=== PATIENT | female | born 1985 | race African-American/Black ===

== ENCOUNTER 2016-10-04 19:24 | Emergency (ER) | payer OTHER ==
[~2016-10-04] VITALS: Ht 167.6 cm; Wt 96.6 kg
[~2016-10-04 19:24] MED LIST: HYDR-3533 PO; PROT40TA PO
[2016-10-04 19:28] VITALS: BP 130/80; PULSE 85; RESP 16; TEMP 98.6; O2SAT 99
[2016-10-04 20:00] VITALS: BP 135/70; PULSE 83; RESP 18; O2SAT 98
[2016-10-04] MEDS ORDERED: SODIUM CHLOR 0.9% 1000 ML INJ 1,000 ML IV ONE (20:09)
--- NOTE | 2016-10-04 20:14 | PD ---
HPI Chief Complaint: Abdominal Pain Time Seen by Provider: 19:34 Travel History International Travel<30 days: No Contact w/Intl Traveler<30days: No Traveled to known affect area: No History of Present Illness HPI This 30-year-old female is complaining of abdominal pain. She says the pain is been going on for 2 days. Her last menstrual period was on the . She has not had any vaginal bleeding. She has no history of hypertension or diabetes. She has had ovarian cysts in the past. She's been having some loose stools. She has not vomited. She says the pain is worse today than it was yesterday. It has been fairly constant. She is not aware of fever. She is not aware of vaginal discharge PFSH Past Medical History Asthma: No Blood Disorders: No Cancer: No Cardiovascular Problems: No Chest Pain: Yes COPD: No Diminished Hearing: No Endocrine: No Gastrointestinal Disorders: Yes (GERD ) Genitourinary: No Headaches: Yes (cluster headaches) Immune Disorder: No Musculoskeletal: No Neurologic: No Psychiatric: No Reproductive: No Respiratory: Yes (bronchitis) Immunizations Current: No Sleep Apnea: No Tetanus Vaccination: > 5 Years Influenza Vaccination: No ?: Unknown LMP: September 11, 2016 : 3 Para: 1 Miscarriage: 2 Ovarian Cysts: Yes Dilation and Curettage (D&C): Yes Past Surgical History Other Surgery: Yes (OVARIAN BIOPSY) Social History Alcohol Use: Yes (Socially) Tobacco Use: No Substance Use: No Allergies-Medications (Allergen,Severity, Reaction): Coded Allergies: Codeine (Verified Allergy, Severe, convulsions, 10/04/16) Morphine (Verified Allergy, Unknown, 10/04/16) Compazine (Verified Adverse Reaction, Severe, Irritability/Anxiety, ) Reported Meds & Prescriptions Reported Meds & Active Scripts Active Review of Systems General / Constitutional: No: Fever, Chills Eyes: No: Diploplia, Blurred Vision HENT: No: Headaches, Vertigo Cardiovascular: No: Chest Pain or Discomfort, Palpitations Respiratory: No: Cough, Shortness of Breath Gastrointestinal: Positive: Diarrhea, Abdominal Pain, No: Vomiting Genitourinary: No: Frequency Musculoskeletal: No: Myalgias, Arthralgias Skin: No Rash Neurologic: No: Weakness Physical Exam Narrative GENERAL: Well-developed female SKIN: Focused skin assessment warm/dry. HEAD: Atraumatic. Normocephalic. EYES: Pupils equal and round. No scleral icterus. No injection or drainage. ENT: No nasal bleeding or discharge. Mucous membranes pink and moist. NECK: Trachea midline. No JVD. CARDIOVASCULAR: Regular rate and rhythm. No murmur appreciated. RESPIRATORY: No accessory muscle use. Clear to auscultation. Breath sounds equal bilaterally. GASTROINTESTINAL: Abdomen soft, non-tender, nondistended. Hepatic and splenic margins not palpable. CANVAS SHRINKER: Cervical os is closed. Uterus not palpably enlarged. There is some whitish vaginal discharge. There is pain with movement of the cervix MUSCULOSKELETAL: No obvious deformities. No clubbing. No cyanosis. No edema. NEUROLOGICAL: Awake and alert. No obvious cranial nerve deficits. Motor grossly within normal limits. Normal speech. PSYCHIATRIC: Appropriate mood and affect; insight and judgment normal. Data Data Last Documented VS Vital Signs Date Time Temp Pulse Resp B/P Pulse Ox O2 Delivery O2 Flow Rate FiO2 10/04/16 23:00 68 18 119/71 99 Room Air 10/04/16 19:28 98.6 Orders Complete Blood Count With Diff (10/04/16 20:09) Comprehensive Metabolic Panel (10/04/16 20:09) Gc And Chlamydia Pcr (10/04/16 20:09) Wet Prep Profile (10/04/16 20:09) Urinalysis - C+S If Indicated (10/04/16 20:09) Ceftriaxone Inj (Rocephin Inj) (10/04/16 20:15) Sodium Chlor 0.9% 1000 Ml Inj (Ns 1000 M (10/04/16 20:09) Ed Urine Pregnancytest Poc (10/04/16 20:09) Ct Abd/Pel W Iv Contrast(Rout) (10/04/16 20:09) Ketorolac Inj (Toradol Inj) (10/04/16 20:45) Iohexol 350 Inj (Omnipaque 350 Inj) (10/04/16 22:08) Labs Laboratory Tests Test 10/04/16 10/04/16 10/04/16 20:05 20:10 20:15 Urine Color YELLOW Urine Turbidity CLEAR Urine pH 7.0 Urine Specific [place] 1.015 Urine Protein NEG mg/dL Urine Glucose (UA) NEG mg/dL Urine Ketones NEG mg/dL Urine Occult Blood NEG Urine Nitrite NEG Urine Bilirubin NEG Urine Leukocyte Esterase NEG Urine WBC 0-2 /hpf Urine Squamous Epithelial 0-5 /hpf Cells Microscopic Urinalysis Comment CULT NOT INDICATED Clue Cells (Wet Prep) NONE SEEN Vaginal Trichomonas (Wet Prep) NONE SEEN Vaginal Yeast (Wet Prep) NONE SEEN White Blood Count 9.1 TH/MM3 Red Blood Count 4.23 MIL/MM3 Hemoglobin 12.6 GM/DL Hematocrit 36.8 % Mean Corpuscular Volume 87.0 FL Mean Corpuscular Hemoglobin 29.9 PG Mean Corpuscular Hemoglobin 34.4 % Concent Red Cell Distribution Width 12.5 % Platelet Count 249 TH/MM3 Mean Platelet Volume 8.0 FL Neutrophils (%) (Auto) 68.0 % Lymphocytes (%) (Auto) 25.1 % Monocytes (%) (Auto) 5.5 % Eosinophils (%) (Auto) 1.1 % Basophils (%) (Auto) 0.3 % Neutrophils # (Auto) 6.2 TH/MM3 Lymphocytes # (Auto) 2.3 TH/MM3 Monocytes # (Auto) 0.5 TH/MM3 Eosinophils # (Auto) 0.1 TH/MM3 Basophils # (Auto) 0.0 TH/MM3 CBC Comment DIFF FINAL Differential Comment Sodium Level 139 MEQ/L Potassium Level 3.6 MEQ/L Chloride Level 104 MEQ/L Carbon Dioxide Level 28.5 MEQ/L Anion Gap 7 MEQ/L Blood Urea Nitrogen 11 MG/DL Creatinine 0.81 MG/DL Estimat Glomerular Filtration 100 ML/MIN Rate Random Glucose 94 MG/DL Calcium Level 9.0 MG/DL Total Bilirubin 0.3 MG/DL Aspartate Amino Transf 12 U/L (AST/SGOT) Alanine Aminotransferase 24 U/L (ALT/SGPT) Alkaline Phosphatase 57 U/L Total Protein 7.8 GM/DL Albumin 3.8 GM/DL [facility] Medical Decision Making Medical Screen Exam Complete: Yes Emergency Medical Condition: Yes Medical Record Reviewed: Yes Differential Diagnosis Differential includes appendicitis, ovarian cyst, nonspecific abdominal pain Narrative Course CT scan shows ovarian cysts and is negative for appendicitis. Patient is stable for discharge. A medic cover her with antibiotics pending results of serology Diagnosis Primary Impression: Ovarian cyst Scripts Hydrocodone-Acetaminophen (Lortab)5-325 Mg Tab1 Tab PO Q4H PRN (PAIN) #20 TAB Ref 0 Prov:Maximo Ball MD 10/04/16 Doxycycline Hyclate 100 Mg [id number] Mg PO BID #20 CAP Prov:Maximo Ball MD 10/04/16 Disposition: 01 DISCHARGE HOME Condition: Stable Maximo Ball MD October 04, 2016 20:13
[2016-10-04] MEDS ORDERED: cefTRIAXone INJ 1,000 MG in SODIUM CHLORIDE 0.9% INJ 100 ML IV ONE (20:15)
[2016-10-04 20:37] LABS: BLOOD, URINE NEG (NEG); GLUCOSE,URINE NEG (NEG); KETONE, URINE NEG (NEG); NITRITE,URINE NEG (NEG)
[2016-10-04 20:40] LABS: CHLORIDE 104 MEQ/L (98-107); POTASSIUM 3.6 MEQ/L (3.5-5.1); SODIUM (NA) 139 MEQ/L (136-145)
[2016-10-04 20:44] LABS: ANION GAP 7 MEQ/L (5-15); BICARBONATE 28.5 MEQ/L (21.0-32.0); BLOOD UREA NITROGEN 11 MG/DL (7-18)
[2016-10-04] MEDS ORDERED: KETOROLAC TROMETHAMINE 30 MG/ML (IVP) VIAL IV PUSH ONE (20:45)
[2016-10-04 20:47] LABS: ALT (GPT) 24 U/L (10-53); AST (GOT) 12 U/L (15-37); GLOMERULAR FILTRATION RATE 100 ML/MIN (>89)
[2016-10-04 20:48] LABS: URINE COLOR YELLOW (YELLW/STRAW)
[2016-10-04 20:49] LABS: TOTAL BILIRUBIN ADULT 0.3 MG/DL (0.2-1.0)
[2016-10-04 20:50] LABS: ALKALINE PHOSPHATASE 57 U/L (45-117)
[2016-10-04 20:50] LABS: COMMENT (UR) CULT NOT INDICATED; CULTURE IF INDICATED CULT NOT INDICATED; SQUAMOUS EPITHELIAL CELL URINE 0-5 /hpf (0-5); WBC, URINE 0-2 /hpf (0-5)
[2016-10-04 21:00] VITALS: BP 129/81; PULSE 80; RESP 18; O2SAT 100
[2016-10-04 21:25] LABS: AUTOMATED NEUTROPHIL # 6.2 TH/MM3 (1.8-7.7); BASOPHIL % 0.3 % (0.0-2.0); EOSINOPHIL # 0.1 TH/MM3 (0-0.4); EOSINOPHIL % 1.1 % (0.0-4.0); HEMATOCRIT 36.8 % (35.0-46.0); HEMO FLAGS DIFF FINAL; LYMPH % 25.1 % (9.0-44.0); LYMPHOCYTE # 2.3 TH/MM3 (1.0-4.8); MEAN CORPUSCULAR HEMOGLOBIN 29.9 PG (27.0-34.0); MEAN CORPUSCULAR HGB CONC 34.4 % (32.0-36.0); MONO % 5.5 % (0.0-8.0); PLATELET COUNT 249 TH/MM3 (150-450); RED BLOOD COUNT 4.23 MIL/MM3 (4.00-5.30); RED CELL DISTRIBUTION WIDTH 12.5 % (11.6-17.2); WHITE BLOOD COUNT 9.1 TH/MM3 (4.0-11.0)
[2016-10-04 22:00] VITALS: BP 120/60; PULSE 82; RESP 18; O2SAT 99
[2016-10-04] MEDS ORDERED: IOHEXOL 350 MG/ML 10 ML VIAL (for RAD DIAG) IV ONE (22:08)
--- NOTE | 2016-10-04 22:22 | RADHPO ---
EXAM DATE/TIME: 10/04/2016 21:07 [facility] COMPARISON: No previous studies available for comparison. INDICATIONS : Right lower quadrant pain. Diarrhea. IV CONTRAST: 100 cc Omnipaque 350 (iohexol) IV ORAL CONTRAST: No oral contrast ingested. RADIATION DOSE: 18.31 CTDIvol (mGy) MEDICAL HISTORY : None SURGICAL HISTORY : None. ENCOUNTER: Initial ACUITY: 2 days PAIN SCALE: 8/10 LOCATION: Right lower quadrant TECHNIQUE: Volumetric scanning of the abdomen and pelvis was performed. Using automated exposure control and ad justment of the mA and/or kV according to patient size, radiation dose was kept as low as reasonably achievable to obtain optimal diagnostic quality images. FINDINGS: Lung bases clear. Tiny cyst anterior liver stable since 2016. Adrenals, kidneys and pancreas unremark able. No gallstones identified. The appendix is normal. Trace free fluid. No bowel obstruction. No adenopathy. Multiple small cysts i n the right ovary including a suspected 1.7 cm corpus luteum cyst. CONCLUSION: 1. Normal CT appearance of appendix. Small cysts in the right ovary including a suspected 1.7 cm erika us luteum cyst. Trace free fluid. Tiny hepatic cysts. Small hiatal hernia. Brayden Narvaez MD on October 04, 2016 at 22:15 Board Certified Radiologist. This report was verified electronically.
[2016-10-04 23:00] VITALS: BP 119/71; PULSE 68; RESP 18; O2SAT 99
[2016-10-04] MEDS ORDERED: HYDR-3533 PO (23:54)
[2016-10-04] MEDS ORDERED: DOXY100C PO (23:54)
[2016-10-05 00:14] VITALS: BP 109/67; TEMP 98.7
[2016-10-05 03:56] LABS: CHLAMYDIA PCR NOT DETECTED (NOT DETECT); NEISSERIA PCR NOT DETECTED (NOT DETECT)
== END 2016-10-05 00:18 | disposition home or self-care (01) ==
LOC: PHED 19:24
DX: N83.201 Unspecified ovarian cyst, right side (principal); K76.89 Other specified diseases of liver; K44.9 Diaphragmatic hernia without obstruction or gangrene; R19.7 Diarrhea, unspecified; K21.9 Gastro-esophageal reflux disease without esophagitis
CPT/HCPCS: 74177; 80053; 81001; 84703; 85025; 87210; 87491; 87591; 96365; 96375; 99284; J0696; J1885; J7030; Q9967

== ENCOUNTER 2017-02-01 20:33 | Emergency (ER) | payer OTHER ==
[~2017-02-01 20:33] MED LIST changes: +DOXY100C PO; -PROT40TA PO
--- NOTE | 2017-02-01 20:48 | PD ---
HPI Chief Complaint: Chest Pain Time Seen by Provider: 20:45 Travel History International Travel<30 days: No Contact w/Intl Traveler<30days: No Traveled to known affect area: No History of Present Illness HPI This 31-year-old female has been having lower abdominal pain for 2 days. She's had some nausea. Today she had some sharp left-sided chest pain. She is not short of breath. There is been no fever or chills. PFSH Past Medical History Asthma: No Blood Disorders: No Cancer: No Cardiovascular Problems: No Chest Pain: Yes COPD: No Diminished Hearing: No Endocrine: No Gastrointestinal Disorders: Yes (GERD ) Genitourinary: No Headaches: Yes (cluster headaches) Immune Disorder: No Musculoskeletal: No Neurologic: No Psychiatric: No Reproductive: No Respiratory: Yes (bronchitis) Immunizations Current: No Sleep Apnea: No : 3 Para: 1 Miscarriage: 2 Ovarian Cysts: Yes Dilation and Curettage (D&C): Yes Past Surgical History Other Surgery: Yes (OVARIAN BIOPSY) Social History Alcohol Use: Yes (Socially) Tobacco Use: No Substance Use: No Allergies-Medications (Allergen,Severity, Reaction): Coded Allergies: codeine (Unverified Allergy, Severe, convulsions, 02/01/17) morphine (Unverified Allergy, Unknown, UNKNOWN, 02/01/17) UNKNOWN prochlorperazine (Unverified Adverse Reaction, Severe, Irritability/ Anxiety, 02/01/17) Reported Meds & Prescriptions Reported Meds & Active Scripts Active Clindamycin (Clindamycin HCl) 300 Mg Cap 300 Mg PO BID 7 Days Reported Vitamin D-1000 (Cholecalciferol) 1,000 Unit Tab 1,000 Units PO DAILY Review of Systems General / Constitutional: No: Fever, Chills Eyes: No: Diploplia, Blurred Vision HENT: No: Headaches, Vertigo Cardiovascular: Positive: Chest Pain or Discomfort Respiratory: No: Cough, Shortness of Breath Gastrointestinal: No: Nausea, Vomiting Genitourinary: Positive: Pelvic Pain, No: Urgency, Frequency Musculoskeletal: No: Myalgias, Arthralgias Skin: No Rash Endocrine: No: Heat Intolerance Physical Exam Narrative GENERAL: Well-developed female SKIN: Focused skin assessment warm/dry. HEAD: Atraumatic. Normocephalic. EYES: Pupils equal and round. No scleral icterus. No injection or drainage. ENT: No nasal bleeding or discharge. Mucous membranes pink and moist. NECK: Trachea midline. No JVD. CARDIOVASCULAR: Regular rate and rhythm. No murmur appreciated. RESPIRATORY: No accessory muscle use. Clear to auscultation. Breath sounds equal bilaterally. There is some left-sided costochondral tenderness GASTROINTESTINAL: Abdomen soft, there is some lower abdominal tenderness, nondistended. Hepatic and splenic margins not palpable. DEMAND PLANNING ANALYST: There is some moderate amount of whitish thin discharge. There is no pain with movement of the cervix. No masses are felt MUSCULOSKELETAL: No obvious deformities. No clubbing. No cyanosis. No edema. NEUROLOGICAL: Awake and alert. No obvious cranial nerve deficits. Motor grossly within normal limits. Normal speech. PSYCHIATRIC: Appropriate mood and affect; insight and judgment normal. Data Data Last Documented VS Vital Signs Date Time Temp Pulse Resp B/P (MAP) Pulse Ox O2 Delivery O2 Flow Rate FiO2 02/01/17 22:33 98.5 75 18 120/60 (80) 99 Room Air Orders Orders Electrocardiogram (02/01/17 20:35) Complete Blood Count With Diff (02/01/17 20:35) Basic Metabolic Panel (Bmp) (02/01/17 20:35) Troponin I (02/01/17 20:35) Iv Access Insert/Monitor (02/01/17 20:35) Ecg Monitoring (02/01/17 20:35) Oxygen Administration (02/01/17 20:35) Oximetry (02/01/17 20:35) Gc And Chlamydia Pcr (02/01/17 20:46) Wet Prep Profile (02/01/17 20:46) Ed Urine Pregnancytest Poc (02/01/17 20:46) Urinalysis - C+S If Indicated (02/01/17 21:14) Beta Hcg (Quant/Titer) (02/01/17 20:51) Us Pelvis (Ques Pr/Ect)W Trans (02/01/17 21:54) Labs Laboratory Tests Test 02/01/17 20:51 02/01/17 21:15 02/01/17 22:13 White Blood Count 10.8 TH/MM3 Red Blood Count 3.98 MIL/MM3 Hemoglobin 12.0 GM/DL Hematocrit 34.1 % Mean Corpuscular Volume 85.6 FL Mean Corpuscular Hemoglobin 30.1 PG Mean Corpuscular Hemoglobin Concent 35.2 % Red Cell Distribution Width 13.2 % Platelet Count 233 TH/MM3 Mean Platelet Volume 7.5 FL Neutrophils (%) (Auto) 71.8 % Lymphocytes (%) (Auto) 21.0 % Monocytes (%) (Auto) 6.0 % Eosinophils (%) (Auto) 0.8 % Basophils (%) (Auto) 0.4 % Neutrophils # (Auto) 7.8 TH/MM3 Lymphocytes # (Auto) 2.3 TH/MM3 Monocytes # (Auto) 0.6 TH/MM3 Eosinophils # (Auto) 0.1 TH/MM3 Basophils # (Auto) 0.0 TH/MM3 CBC Comment DIFF FINAL Differential Comment Blood Urea Nitrogen 8 MG/DL Creatinine 0.78 MG/DL Random Glucose 81 MG/DL Calcium Level 8.5 MG/DL Sodium Level 137 MEQ/L Potassium Level 3.4 MEQ/L Chloride Level 104 MEQ/L Carbon Dioxide Level 26.1 MEQ/L Anion Gap 7 MEQ/L Estimat Glomerular Filtration Rate 104 ML/MIN Troponin I LESS THAN 0.02 NG/ML Human Chorionic Gonadotropin, Quant 30146 MIU/ML Urine Color YELLOW Urine Turbidity CLEAR Urine pH 7.0 Urine Specific [place] 1.015 Urine Protein NEG mg/dL Urine Glucose (UA) NEG mg/dL Urine Ketones NEG mg/dL Urine Occult Blood NEG Urine Nitrite NEG Urine Bilirubin NEG Urine Leukocyte Esterase NEG Urine RBC 0-3 /hpf Urine WBC 0-2 /hpf Urine Squamous Epithelial Cells 0-5 /hpf Urine Bacteria FEW /hpf Microscopic Urinalysis Comment CULT NOT INDICATED Clue Cells (Wet Prep) PRESENT Vaginal Trichomonas (Wet Prep) NONE SEEN Vaginal Yeast (Wet Prep) NONE SEEN MDM Medical Decision Making Medical Screen Exam Complete: Yes Emergency Medical Condition: Yes Medical Record Reviewed: Yes Differential Diagnosis Differential includes , vaginitis, cervicitis Narrative Course Wet prep is positive for bacterial vaginosis. She'll be treated with clindamycin 300 twice a day for 7 days. test is positive and a titer is 19,000. Pelvic ultrasound is done. There is a viable intrauterine estimated to be 5-6 weeks old. There is an area thought to be an old subchorionic hemorrhage. Probable corpus luteum on the right. Patient is stable for discharge Diagnosis Primary Impression: Intrauterine Additional Impression: Bacterial vaginosis Scripts Clindamycin (Clindamycin) 300 Mg Cap 300 MG PO BID for Infection for 7 Days, #14 CAP 0 Refills Prov: Maximo Ball MD 02/01/17 Disposition: 01 DISCHARGE HOME Condition: Stable Maximo Ball MD Feb 01, 2017 20:48
[2017-02-01 20:59] VITALS: BP 119/71; PULSE 78; RESP 18; O2SAT 98
[2017-02-01] MEDS ORDERED: VITA1000 PO (20:59)
[2017-02-01 21:02] VITALS: O2SAT 99
[2017-02-01 21:08] LABS: CHLORIDE 104 MEQ/L (98-107); POTASSIUM 3.4 MEQ/L (3.5-5.1); SODIUM (NA) 137 MEQ/L (136-145)
[2017-02-01 21:11] LABS: ANION GAP 7 MEQ/L (5-15); AUTOMATED NEUTROPHIL # 7.8 TH/MM3 (1.8-7.7); BASOPHIL % 0.4 % (0.0-2.0); BICARBONATE 26.1 MEQ/L (21.0-32.0); BLOOD UREA NITROGEN 8 MG/DL (7-18); EOSINOPHIL # 0.1 TH/MM3 (0-0.4); EOSINOPHIL % 0.8 % (0.0-4.0); HEMATOCRIT 34.1 % (35.0-46.0); HEMO FLAGS DIFF FINAL; LYMPHOCYTE # 2.3 TH/MM3 (1.0-4.8); MEAN CELL VOLUME 85.6 FL (80.0-100.0); MEAN CORPUSCULAR HEMOGLOBIN 30.1 PG (27.0-34.0); MEAN CORPUSCULAR HGB CONC 35.2 % (32.0-36.0); NEUT % 71.8 % (16.0-70.0); PLATELET COUNT 233 TH/MM3 (150-450); RED BLOOD COUNT 3.98 MIL/MM3 (4.00-5.30); RED CELL DISTRIBUTION WIDTH 13.2 % (11.6-17.2); WHITE BLOOD COUNT 10.8 TH/MM3 (4.0-11.0)
[2017-02-01 21:15] LABS: GLOMERULAR FILTRATION RATE 104 ML/MIN (>89)
[2017-02-01 21:25] LABS: BLOOD, URINE NEG (NEG); GLUCOSE,URINE NEG (NEG); KETONE, URINE NEG (NEG); NITRITE,URINE NEG (NEG)
[2017-02-01 21:30] LABS: BACTERIA, URINE FEW /hpf; COMMENT (UR) CULT NOT INDICATED; CULTURE IF INDICATED CULT NOT INDICATED; RBC, URINE 0-3 /hpf (0-3); SQUAMOUS EPITHELIAL CELL URINE 0-5 /hpf (0-5); URINE COLOR YELLOW (YELLW/STRAW); WBC, URINE 0-2 /hpf (0-5)
[2017-02-01 21:46] LABS: BETA HCG QUANT 18299 MIU/ML (0-5)
[2017-02-01 22:33] VITALS: BP 120/60; PULSE 75; RESP 18; TEMP 98.5; O2SAT 99
[2017-02-01] MEDS ORDERED: CLIN1CAP6 PO (22:43)
--- NOTE | 2017-02-01 23:29 | RADRPT ---
EXAM DATE/TIME: 02/01/2017 22:51 [facility] COMPARISON: No previous studies available for comparison. INDICATIONS : Pelvic pain. LAB(S): Beta-hC MEDICAL HISTORY : . Ovarian cysts. SURGICAL HISTORY : D&C. ENCOUNTER: Initial ACUITY: 3 days PAIN SCORE: 3/10 LOCATION: Bilateral pelvis MEASUREMENTS: UTERUS: 10.4 x 5.7 x 5.6 cm ENDOMETRIAL STRIPE: >20 mm RIGHT OVARY: 4.3 x 2.6 x 4.1 cm LEFT OVARY: 2.4 x 1.8 x 1.5 cm FREE FLUID: Yes right adnexa CROWN RUMP LENGTH: 0.2 cm = WKS DAYS FHR: 104 BPM FINDINGS: UTERUS: The myometrium has homogeneous echotexture without mass. Gestational sac is identified in the fundus measuring 2.0 x 1.7 x 1.2 cm corresponding to a gestational age of 6 weeks. No sac is present and a pole was identified with a crown-rump length of 2 mm. heart motions are identified at 102 beats per minute. A complex, 1.8 x 0.9 x 2.3 cm area subjacent to the gestational sac may represent an old subchorionic hemorrhage. RIGHT OVARY: 2.2 x 1.7 x 2.1 cm cyst may represent a corpus luteum. Small amount of free fluid in the right adnexa . Small amount of free fluid in the right adnexal region. LEFT OVARY: Ovary contains no mass or significant cystic lesion. MISCELLANEOUS: No free fluid. CONCLUSION: 1. Viable intrauterine estimated to be 5-6 weeks old. 2. Complex crescentic area adjacent to the gestational sac may represent an old subchorionic bleed. 3. Probable corpus luteum in the right ovary. Small amount of free fluid in the right adnexal region. Blaine Cui MD on February 01, 2017 at 23:23 Board Certified Radiologist. This report was verified electronically.
[2017-02-01 23:38] VITALS: BP 130/66
[2017-02-02 01:41] LABS: CHLAMYDIA PCR NOT DETECTED (NOT DETECT); NEISSERIA PCR NOT DETECTED (NOT DETECT)
--- NOTE | 2017-02-02 17:53 | EKG ---
Date Performed: 02/01/2017 Time Performed: 20:41:58 PTAGE: 31 years EKG: Sinus rhythm NORMAL ECG Compared to prior tracing no significant change PREVIOUS TRACING : 04/22/2016 21.36 DOCTOR: Amadeo Cr Interpretating Date/Time 02/02/2017 17:51:46
== END 2017-02-01 23:38 | disposition home or self-care (01) ==
LOC: PHED 20:33
DX: O23.591 Infection of other part of genital tract in pregnancy, first trimester (principal); N76.0 Acute vaginitis; R07.89 Other chest pain; Z87.19 Personal history of other diseases of the digestive system; Z87.42 Personal history of other diseases of the female genital tract; Z3A.01 Less than 8 weeks gestation of pregnancy
CPT/HCPCS: 76700; 76817; 80048; 81001; 84484; 84702; 84703; 85025; 87210; 87491; 87591; 93005

== ENCOUNTER 2017-02-15 12:06 | Emergency (ER) | payer OTHER ==
[~2017-02-15] VITALS: Ht 167.6 cm; Wt 100.0 kg
[~2017-02-15 12:06] MED LIST changes: +CLIN1CAP6 PO; -DOXY100C PO; -HYDR-3533 PO; +VITA1000 PO
[2017-02-15 12:09] VITALS: BP 131/86; PULSE 83; RESP 16; TEMP 99.1; O2SAT 99
--- NOTE | 2017-02-15 12:12 | PD ---
Physical Exam Time Seen by Provider: 12:11 Narrative 31 /o female here for evaluation of spotting, abdominal pain, lightheadedness. Currently 9 weeks . Vital signs reviewed. Seen at triage desk. Awaiting bed placement. Data Data Last Documented VS Vital Signs Date Time Temp Pulse Resp B/P (MAP) Pulse Ox O2 Delivery O2 Flow Rate FiO2 02/15/17 12:09 99.1 83 16 131/86 (101) 99 Room Air [facility] Medical Record Reviewed: Yes Supervised Visit with ANDREW: No Sergio Nash Feb 15, 2017 12:12
[2017-02-15] MEDS ORDERED: SODIUM CHLORIDE 0.9% FLUSH 10 ML FLUSH IVF PRN (13:00)
--- NOTE | 2017-02-15 13:19 | PD ---
HPI Chief Complaint: Related Problem Time Seen by Provider: 12:42 Travel History International Travel<30 days: No Contact w/Intl Traveler<30days: No Traveled to known affect area: No History of Present Illness HPI 31-year-old female presents to the emergency Department with complaint of continued lower abdominal pain, continued right upper quadrant abdominal pain 2 weeks and vaginal bleeding that started yesterday. It is approximately 8-9 weeks . Says the bleeding is more like spotting. She was seen here on February 01 with lower abdominal pain and at that time that she was . She had no vaginal bleeding at that time. She was treated with clindamycin for bacterial vaginosis which she has completed the antibiotic. Reports continued vaginal itch and discharge. Denies vaginal odor. Denies dysuria. Denies change in stool. Reports nausea without vomiting. Symptoms are moderate in severity. This is her third and she has history of one miscarriage and one living child. Dr. Ryan is play leader and has an appointment in 2 weeks. Allergies to codeine, morphine, prochlorperazine. No other medical complaints. No other modifying factors or associated signs and symptoms. PFSH Past Medical History Asthma: No Blood Disorders: No Cancer: No Cardiovascular Problems: No Chest Pain: Yes COPD: No Diminished Hearing: No Endocrine: No Gastrointestinal Disorders: Yes (GERD ) GERD: Yes Genitourinary: No Headaches: Yes (cluster headaches) Immune Disorder: No Musculoskeletal: No Neurologic: No Psychiatric: No Reproductive: No Respiratory: Yes (bronchitis) Immunizations Current: No Sleep Apnea: No Thyroid Disease: Yes Tetanus Vaccination: Unknown Influenza Vaccination: No ?: LMP: 12/23/16 : 3 Para: 1 Miscarriage: 2 Ovarian Cysts: Yes Dilation and Curettage (D&C): Yes Past Surgical History Other Surgery: Yes (OVARIAN BIOPSY) Social History Alcohol Use: Yes (Socially) Tobacco Use: No Substance Use: No Allergies-Medications (Allergen,Severity, Reaction): Coded Allergies: codeine (Unverified Allergy, Severe, convulsions, 02/15/17) morphine (Unverified Allergy, Unknown, UNKNOWN, 02/15/17) UNKNOWN prochlorperazine (Unverified Adverse Reaction, Severe, Irritability/ Anxiety, 02/15/17) Reported Meds & Prescriptions Reported Meds & Active Scripts Active No Active Prescriptions or Reported Medications Review of Systems Except as stated in HPI: all other systems reviewed are Neg Physical Exam Narrative GENERAL: Well-nourished, well-developed black female female patient, in no acute distress; afebrile, nontoxic-appearing SKIN: Warm and dry. HEAD: Atraumatic. Normocephalic. EYES: Pupils equal and round. No scleral icterus. No injection or drainage. ENT: Mucous membranes pink and moist. NECK: Trachea midline. No lymphadenopathy. CARDIOVASCULAR: Regular rate and rhythm. No murmur appreciated. RESPIRATORY: No accessory muscle use. Clear to auscultation. Breath sounds equal bilaterally. GASTROINTESTINAL: Abdomen soft, tenderness to RUQ, nondistended. Bilateral pelvic region nontender to palpation. Hepatic and splenic margins not palpable. No guarding, rigidity, rebound tenderness. Positive Quimby sign. PELVIC: Exam done in the presence of a nurse. Speculum exam reveals nonedematous and nonerythematous cervix with milky white, mucopurulent, foul- smelling discharge. Bimanual exam reveals no palpable masses or adnexa tenderness, no uterine tenderness. Cervical os is closed. No cervical motion tenderness. MUSCULOSKELETAL: No obvious deformities. No clubbing. No cyanosis. No edema. NEUROLOGICAL: Awake and alert. No obvious cranial nerve deficits. Motor grossly within normal limits. Normal speech. PSYCHIATRIC: Appropriate mood and affect; insight and judgment normal. Data Data Last Documented VS Vital Signs Date Time Temp Pulse Resp B/P (MAP) Pulse Ox O2 Delivery O2 Flow Rate FiO2 02/15/17 14:05 79 17 129/84 (99) 98 Room Air 02/15/17 12:09 99.1 Orders Orders Complete Blood Count With Diff (02/15/17 12:56) Comprehensive Metabolic Panel (02/15/17 12:56) Wet Prep Profile (02/15/17 12:56) Urinalysis - C+S If Indicated (02/15/17 12:56) Iv Access Insert/Monitor (02/15/17 12:56) Sodium Chloride 0.9% Flush (Ns Flush) (02/15/17 13:00) Lipase (02/15/17 12:56) Beta Hcg (Quant/Titer) (02/15/17 12:56) Us Abdomen Gallbladder (02/15/17 ) Prothrombin Time / Inr (Pt) (02/15/17 12:56) Act Partial Throm Time (Ptt) (02/15/17 12:56) Ondansetron Inj (Zofran Inj) (02/15/17 13:30) Ed Poc Ultrasound (02/15/17 ) Urine Culture (02/15/17 13:30) Labs Laboratory Tests Test 02/15/17 13:30 02/15/17 14:31 White Blood Count 10.8 TH/MM3 Red Blood Count 4.11 MIL/MM3 Hemoglobin 12.3 GM/DL Hematocrit 35.9 % Mean Corpuscular Volume 87.2 FL Mean Corpuscular Hemoglobin 29.9 PG Mean Corpuscular Hemoglobin Concent 34.2 % Red Cell Distribution Width 14.3 % Platelet Count 246 TH/MM3 Mean Platelet Volume 7.8 FL Neutrophils (%) (Auto) 74.7 % Lymphocytes (%) (Auto) 17.2 % Monocytes (%) (Auto) 7.3 % Eosinophils (%) (Auto) 0.6 % Basophils (%) (Auto) 0.2 % Neutrophils # (Auto) 8.1 TH/MM3 Lymphocytes # (Auto) 1.9 TH/MM3 Monocytes # (Auto) 0.8 TH/MM3 Eosinophils # (Auto) 0.1 TH/MM3 Basophils # (Auto) 0.0 TH/MM3 CBC Comment DIFF FINAL Differential Comment Prothrombin Time 9.9 SEC Prothromb Time International Ratio 0.9 RATIO Activated Partial Thromboplast Time 26.1 SEC Urine Color YELLOW Urine Turbidity HAZY Urine pH 7.5 Urine Specific [place] 1.027 Urine Protein TRACE mg/dL Urine Glucose (UA) NEG mg/dL Urine Ketones NEG mg/dL Urine Occult Blood NEG Urine Nitrite NEG Urine Bilirubin NEG Urine Urobilinogen LESS THAN 2.0 MG/DL Urine Leukocyte Esterase NEG Urine RBC 1 /hpf Urine WBC 2 /hpf Urine Squamous Epithelial Cells 10 /hpf Urine Bacteria MOD /hpf Urine Mucus FEW /lpf Microscopic Urinalysis Comment CULTURE INDICATED Blood Urea Nitrogen 7 MG/DL Creatinine 0.69 MG/DL Random Glucose 72 MG/DL Total Protein 7.1 GM/DL Albumin 3.4 GM/DL Calcium Level 8.7 MG/DL Alkaline Phosphatase 50 U/L Aspartate Amino Transf (AST/SGOT) 13 U/L Alanine Aminotransferase (ALT/SGPT) 16 U/L Total Bilirubin 0.2 MG/DL Sodium Level 136 MEQ/L Potassium Level 3.6 MEQ/L Chloride Level 104 MEQ/L Carbon Dioxide Level 26.0 MEQ/L Anion Gap 6 MEQ/L Estimat Glomerular Filtration Rate 119 ML/MIN Lipase 198 U/L Human Chorionic Gonadotropin, Quant 75420 MIU/ML Clue Cells (Wet Prep) NS Vaginal Trichomonas (Wet Prep) NS Vaginal Yeast (Wet Prep) NS MDM Medical Decision Making Medical Screen Exam Complete: Yes Emergency Medical Condition: Yes Medical Record Reviewed: Yes Differential Diagnosis Threatened miscarriage, miscarriage, vaginal bleeding, bacterial vaginosis Narrative Course This is a 31-year-old female who is approximately 8 weeks with lower abdominal pain, right upper quadrant abdominal pain, and vaginal spotting that started yesterday. She was seen here on February 01 and had pelvic ultrasound which concluded a viable IUP at approximately 5-6 weeks and an old subchorionic bleed. She did not have vaginal bleeding at that time. She was positive for bacterial vaginosis and was treated with clindamycin. She reports continued vaginal discharge and itching. Reports nausea without vomiting. Beta hCG at February 01 visit was [address]. February 01 is also concluded negative chlamydia , gonorrhea, Trichomonas, yeast, urinalysis. Patient's blood type is A+. IV site established. CBC, CMP, lipase, beta-hCG, urinalysis ordered. Wet prep ordered. Bedside ultrasound ordered. Zofran administered in the ER. 1329: Dr. Esteban performed beside US with positive IUP and heart tones. See his note. 1438: Ultrasound gallbladder concludes: Last 24 hours Impressions Gall Bladder Ultrasound 02/15/17 0000 Signed Impressions: Service Date/Time: Wednesday, February 15, 2017 13:34 - CONCLUSION: Limited exam on body habitus. Benign-appearing gallbladder possible stone. Donovan Gonzalez MD FACR Discussed findings of ultrasound. 1501: CBC and CMP unremarkable. Beta-hCG 72853. Lipase 198. Urinalysis with urine bacteria and reflexed to culture. Coags unremarkable. 1550: Negative for vaginal yeast, bacterial vaginosis, Trichomonas. Instructed patient to follow up with play leader in 2 weeks as scheduled. Instructed patient to follow up with primary care provider. Patient verbalizes understanding and agreement with treatment plan. Patient is medically cleared and stable for discharge. Discussed reasons to return to the emergency department. Patient agrees with treatment plan. The patients vital signs are stable and the patient is stable for outpatient follow-up and treatment. Patient discharged home, stable and in no acute distress. Diagnosis Primary Impression: Threatened miscarriage Referrals: Post Hole Digging Machine Operator Primary Care Physician Patient Instructions: General Instructions, Threatened Miscarriage (ED) Additional Instructions: Follow-up with play leader Follow-up with primary care provider Return to the emergency department immediately with worsening of symptoms Med/Other Pt SpecificInfo: No Meds Exist/No RX given Scripts No Active Prescriptions or Reported Meds Disposition: 01 DISCHARGE HOME Condition: Stable Ara Khalil Feb 15, 2017 13:19
[2017-02-15] MEDS ORDERED: ONDANSETRON HCL 4 MG/2 ML VIAL IV PUSH ONE (13:30)
--- NOTE | 2017-02-15 13:30 | PD ---
Physical Exam Date Seen by Provider: Feb 15, 2017 Time Seen by Provider: 13:30 Narrative The patient is a 31-year-old female who is initially evaluated by the mid-level provider. Please refer to the initial history, physical, diagnostic evaluation , and treatment modality plan. Data Data Last Documented VS Vital Signs Date Time Temp Pulse Resp B/P (MAP) Pulse Ox O2 Delivery O2 Flow Rate FiO2 02/15/17 12:09 99.1 83 16 131/86 (101) 99 Room Air Orders Orders Complete Blood Count With Diff (02/15/17 12:56) Comprehensive Metabolic Panel (02/15/17 12:56) Wet Prep Profile (02/15/17 12:56) Urinalysis - C+S If Indicated (02/15/17 12:56) Iv Access Insert/Monitor (02/15/17 12:56) Sodium Chloride 0.9% Flush (Ns Flush) (02/15/17 13:00) Lipase (02/15/17 12:56) Beta Hcg (Quant/Titer) (02/15/17 12:56) Us Abdomen Gallbladder (02/15/17 ) Prothrombin Time / Inr (Pt) (02/15/17 12:56) Act Partial Throm Time (Ptt) (02/15/17 12:56) Ondansetron Inj (Zofran Inj) (02/15/17 13:30) Ed Poc Ultrasound (02/15/17 ) [facility] Medical Record Reviewed: Yes Supervised Visit with ANDREW: Yes Differential Diagnosis Differential diagnosis includes threatened AB, spontaneous AB, subchorionic hemorrhage, UTI, normal . Narrative Course I was asked to perform a bedside ultrasound. Bedside ultrasound with a curvilinear probe reveals an IUP with positive heart tones. The patient tolerated the procedure without difficulty and there is no obvious complications. Procedures Procedure Narrative A bedside ultrasound was performed using a curvilinear probe. Ultrasound reveals an IUP with positive heart tones. The patient tolerated the procedure without difficulty and there was no obvious complications. Scripts No Active Prescriptions or Reported Meds Condition: Zelalem Rose MD Feb 15, 2017 13:30
[2017-02-15 14:05] VITALS: BP 129/84; PULSE 79; RESP 17; O2SAT 98
[2017-02-15 14:06] LABS: AUTOMATED NEUTROPHIL # 8.1 TH/MM3 (1.8-7.7); BASOPHIL % 0.2 % (0.0-2.0); EOSINOPHIL # 0.1 TH/MM3 (0-0.4); EOSINOPHIL % 0.6 % (0.0-4.0); HEMATOCRIT 35.9 % (35.0-46.0); HEMO FLAGS DIFF FINAL; LYMPH % 17.2 % (9.0-44.0); LYMPHOCYTE # 1.9 TH/MM3 (1.0-4.8); MEAN CELL VOLUME 87.2 FL (80.0-100.0); MEAN CORPUSCULAR HEMOGLOBIN 29.9 PG (27.0-34.0); MEAN CORPUSCULAR HGB CONC 34.2 % (32.0-36.0); MONO % 7.3 % (0.0-8.0); NEUT % 74.7 % (16.0-70.0); PLATELET COUNT 246 TH/MM3 (150-450); RED BLOOD COUNT 4.11 MIL/MM3 (4.00-5.30); RED CELL DISTRIBUTION WIDTH 14.3 % (11.6-17.2); WHITE BLOOD COUNT 10.8 TH/MM3 (4.0-11.0)
[2017-02-15 14:12] LABS: APTT (PATIENT) 26.1 SEC (24.3-30.1); INTERNATIONAL NORMALIZED RATIO 0.9 RATIO; PROTHROMBIN TIME - PATIENT 9.9 SEC (9.8-11.6)
--- NOTE | 2017-02-15 14:15 | RADRPT ---
EXAM DATE/TIME: 02/15/2017 13:34 [place] COMPARISON: US ABDOMEN - GALLBLADDER, April 23, 2016, 21:16. INDICATIONS : Right upper quadrant pain. MEDICAL HISTORY : Thyroid disease. Cluster headaches. Bronchitis. GERD. Ovarian cysts. SURGICAL HISTORY : D&C. Ovarian biopsy. ENCOUNTER: Subsequent ACUITY: 2 days PAIN SCORE: 7/10 LOCATION: Right upper quadrant MEASUREMENTS: LIVER: 12.1 cm length COMMON DUCT: 2 mm RIGHT KIDNEY: 11.3 x 5.4 x 5.5 cm FINDINGS: LIVER: Normal echotexture without focal lesion or ductal dilatation. COMMON DUCT: No intraluminal mass or stone visualized. GALLBLADDER: Other polyp or stone in the benign appearing gallbladder. This measures 3 mm. PANCREAS: Poorly visualized RIGHT KIDNEY: No evidence of hydronephrosis, stone, or mass. CONCLUSION: Limited exam on body habitus. Benign-appearing gallbladder possible stone. Donovan Gonzalez MD FACR on February 15, 2017 at 14:12 Board Certified Radiologist. This report was verified electronically.
[2017-02-15 14:16] LABS: ALT (GPT) 16 U/L (10-53); ANION GAP 6 MEQ/L (5-15); AST (GOT) 13 U/L (15-37); BACTERIA, URINE MOD /hpf; BLOOD UREA NITROGEN 7 MG/DL (7-18); BLOOD, URINE NEG (NEG); CHLORIDE 104 MEQ/L (98-107); COMMENT (UR) CULTURE INDICATED; CULTURE IF INDICATED CULTURE INDICATED; GLOMERULAR FILTRATION RATE 119 ML/MIN (>89); GLUCOSE,URINE NEG (NEG); KETONE, URINE NEG (NEG); MUCUS URINE FEW /lpf (OCC); NITRITE,URINE NEG (NEG); PH, URINE 7.5 (5.0-8.5); POTASSIUM 3.6 MEQ/L (3.5-5.1); SODIUM (NA) 136 MEQ/L (136-145); SQUAMOUS EPITHELIAL CELL URINE 10 /hpf (0-5); URINE COLOR YELLOW (YELLW/STRAW)
[2017-02-15 14:33] LABS: ALKALINE PHOSPHATASE 50 U/L (45-117); BETA HCG QUANT 94400 MIU/ML (0-5); TOTAL BILIRUBIN ADULT 0.2 MG/DL (0.2-1.0)
== END 2017-02-15 16:13 | disposition home or self-care (01) ==
LOC: NEPD 12:06
DX: O20.0 Threatened abortion (principal); K21.9 Gastro-esophageal reflux disease without esophagitis; O99.281 Endocrine, nutritional and metabolic diseases complicating pregnancy, first trimester; Z88.5 Allergy status to narcotic agent; Z88.8 Allergy status to other drugs, medicaments and biological substances; Z3A.08 8 weeks gestation of pregnancy
CPT/HCPCS: 76705; 80053; 81001; 83690; 84702; 85025; 85610; 85730; 87086; 87210; 96374; 99285; J2405

== ENCOUNTER 2017-03-05 13:09 | Emergency (ER) | payer OTHER, MEDICAID ==
[2017-03-05 13:13] VITALS: BP 129/80; PULSE 98; RESP 15; TEMP 98.9; O2SAT 98
[2017-03-05 14:58] LABS: BACTERIA, URINE OCC /hpf; BLOOD, URINE NEG (NEG); COMMENT (UR) CULT NOT INDICATED; CULTURE IF INDICATED CULT NOT INDICATED; GLUCOSE,URINE NEG (NEG); KETONE, URINE NEG (NEG); NITRITE,URINE NEG (NEG); SQUAMOUS EPITHELIAL CELL URINE 4 /hpf (0-5); URINE COLOR LIGHT-YELLOW (YELLW/STRAW)
--- NOTE | 2017-03-05 16:30 | PD ---
HPI Chief Complaint: University Counselor Problem/Complaint Time Seen by Provider: 15:53 Travel History International Travel<30 days: No Contact w/Intl Traveler<30days: No Traveled to known affect area: No History of Present Illness HPI 31-year-old female that presents to the ED for evaluation of vaginal discharge and lower abdominal pain. Per patient she's had this for a couple days now. Per patient and discharges clear and she only found on her pain . Denies any smell to it. She does have a history just infections in the past. She was seen here last week of January and had an ultrasound and imaging which showed positive . IUP noted. Patient was told that she might have an miscarriage but she has been since been doing okay. She denies any bleeding. She was about 9 weeks at the time. She is possibly about 11 weeks now. She has follow with her doctor. She denies any other medical issues. She states that she did feel somewhat nauseous and has been vomiting but has been trying to take care of this on her own without having to take medications. She takes no medications at this time. She does have multiple allergies to medication. Per patient the pain in the lower abdomen is what scared her and made her come here. Per patient the pain is 2 out of 10. Discharge has been ongoing for longer. PFSH Past Medical History Asthma: No Blood Disorders: No Cancer: No Cardiovascular Problems: No Chest Pain: Yes COPD: No Diminished Hearing: No Endocrine: No Gastrointestinal Disorders: Yes (GERD ) GERD: Yes Genitourinary: No Headaches: Yes (cluster headaches) Immune Disorder: No Musculoskeletal: No Neurologic: No Psychiatric: No Reproductive: No Respiratory: Yes (bronchitis) Immunizations Current: No Sleep Apnea: No Thyroid Disease: Yes ?: LMP: 12/24/2016 : 3 Para: 1 Miscarriage: 2 Ovarian Cysts: Yes Dilation and Curettage (D&C): Yes Past Surgical History Other Surgery: Yes (OVARIAN BIOPSY) Social History Alcohol Use: Yes (Socially) Tobacco Use: No Substance Use: No Allergies-Medications (Allergen,Severity, Reaction): Coded Allergies: codeine (Unverified Allergy, Severe, convulsions, 02/15/17) morphine (Unverified Allergy, Unknown, UNKNOWN, 02/15/17) UNKNOWN prochlorperazine (Unverified Adverse Reaction, Severe, Irritability/ Anxiety, 02/15/17) Reported Meds & Prescriptions Reported Meds & Active Scripts Active No Active Prescriptions or Reported Medications Review of Systems Except as stated in HPI: all other systems reviewed are Neg Physical Exam Narrative GENERAL: SKIN: Warm and dry. HEAD: Atraumatic. Normocephalic. EYES: Pupils equal and round. No scleral icterus. No injection or drainage. ENT: No nasal bleeding or discharge. Mucous membranes pink and moist. Tongue is midline. No uvula deviation. NECK: Trachea midline. No JVD. CARDIOVASCULAR: Regular rate and rhythm. No murmurs, S3, S4. RESPIRATORY: No accessory muscle use. Clear to auscultation. Breath sounds equal bilaterally. GASTROINTESTINAL: Abdomen soft, non-tender, nondistended. Hepatic and splenic margins not palpable. Vaginal exam: The one from her nose present. Patient does have what appears to be whitish discharge that appears to be somewhat also clear on the vagina. No adnexal tenderness. No lymphadenopathy noted. No masses or deformity noted. MUSCULOSKELETAL: Extremities without clubbing, cyanosis, or edema. No obvious deformities. Full range of motion of the upper and lower extremities bilaterally. 2+ pulses bilaterally. NEUROLOGICAL: Awake and alert. No obvious cranial nerve deficits. Motor grossly within normal limits. Five out of 5 muscle strength in the arms and legs. Normal speech. PSYCHIATRIC: Appropriate mood and affect; insight and judgment normal. Data Data Last Documented VS Vital Signs Date Time Temp Pulse Resp B/P (MAP) Pulse Ox O2 Delivery O2 Flow Rate FiO2 03/05/17 15:52 18 03/05/17 13:13 98.9 98 129/80 (96) 98 Orders Orders Urinalysis - C+S If Indicated (03/05/17 13:42) Ed Poc Ultrasound (03/05/17 ) Beta Hcg (Quant/Titer) (03/05/17 15:53) Wet Prep Profile (03/05/17 15:53) Gc And Chlamydia Pcr (03/05/17 15:53) Labs Laboratory Tests Test 03/05/17 12:50 03/05/17 16:10 Urine Color LIGHT-YELLOW Urine Turbidity CLEAR Urine pH 7.0 Urine Specific [place] 1.012 Urine Protein NEG mg/dL Urine Glucose (UA) NEG mg/dL Urine Ketones NEG mg/dL Urine Occult Blood NEG Urine Nitrite NEG Urine Bilirubin NEG Urine Urobilinogen LESS THAN 2.0 MG/DL Urine Leukocyte Esterase NEG Urine WBC LESS THAN 1 /hpf Urine Squamous Epithelial Cells 4 /hpf Urine Bacteria OCC /hpf Microscopic Urinalysis Comment CULT NOT INDICATED Clue Cells (Wet Prep) NONE SEEN Vaginal Trichomonas (Wet Prep) NONE SEEN Vaginal Yeast (Wet Prep) NONE SEEN Human Chorionic Gonadotropin, Quant 22467 MIU/ML MDM Medical Decision Making Medical Screen Exam Complete: Yes Emergency Medical Condition: Yes Medical Record Reviewed: Yes Interpretation(s) UA negative for UTI. wet prep negative Differential Diagnosis Vaginitis versus yeast infection versus IUP versus threatened miscarriage versus pelvic pain versus normal exam Narrative Course 31-year-old female that presents to the ED for evaluation of vaginal discharge and lower abdominal pain. Patient was properly examined and was found to have signs and symptoms of unclear acuity of this time. Patient did had an ultrasound and lab work that was essentially unremarkable at the end of January. Labs and imaging were ordered here. Pelvic exam was for the most part reassuring she does have some white discharge but appears to be normal. We did send a wet prep. Urine was negative. Patient does have a positive urine . Labs and imaging showed elevated Beta which is slightly lower than on january. Ultrasound was done at bedside by my attending Dr. Brandt and we were able to see IUP with HR and possible dating of 10 weeks and 6 days. Patient was reassured. We do recommend reevaluation in 48 hours if no improvement. See ED worsening symptoms. Patient was given Reglan for her nausea. Told to take Tylenol for pain." Follow-up with SOA ENGINEER. See ED for worsening symptoms. Diagnosis Primary Impression: Nausea and vomiting during Additional Impression: Pelvic pain affecting Qualified Codes: O26.891 - Other specified related conditions, first trimester; R10.2 - Pelvic and perineal pain Patient Instructions: General Instructions Additional Instructions: In 48 hours get your blood beta rechecked. See ED worsening symptoms. Follow with PCP. Take meds as prescribed. Med/Other Pt SpecificInfo: Prescription(s) given Scripts Metoclopramide (Reglan) 5 Mg Tab 5 MG PO TID for Nausea, #15 TAB 0 Refills Prov: Rakesh Brandt MD 03/05/17 Disposition: 01 DISCHARGE HOME Condition: Stable Biju Patterson Mar 05, 2017 16:30
[2017-03-05 17:00] LABS: BETA HCG QUANT 71851 MIU/ML (0-5)
[2017-03-05] MEDS ORDERED: REGL5TAB PO (17:17)
--- NOTE | 2017-03-05 17:18 | PD ---
Data Data Last Documented VS Vital Signs Date Time Temp Pulse Resp B/P (MAP) Pulse Ox O2 Delivery O2 Flow Rate FiO2 03/05/17 18:04 03/05/17 15:52 18 03/05/17 13:13 98.9 98 98 Orders Orders Urinalysis - C+S If Indicated (03/05/17 13:42) Ed Poc Ultrasound (03/05/17 ) Beta Hcg (Quant/Titer) (03/05/17 15:53) Wet Prep Profile (03/05/17 15:53) Gc And Chlamydia Pcr (03/05/17 15:53) Ed Discharge Order (03/05/17 17:43) Labs Laboratory Tests Test 03/05/17 12:50 03/05/17 16:10 Urine Color LIGHT-YELLOW Urine Turbidity CLEAR Urine pH 7.0 Urine Specific [place] 1.012 Urine Protein NEG mg/dL Urine Glucose (UA) NEG mg/dL Urine Ketones NEG mg/dL Urine Occult Blood NEG Urine Nitrite NEG Urine Bilirubin NEG Urine Urobilinogen LESS THAN 2.0 MG/DL Urine Leukocyte Esterase NEG Urine WBC LESS THAN 1 /hpf Urine Squamous Epithelial Cells 4 /hpf Urine Bacteria OCC /hpf Microscopic Urinalysis Comment CULT NOT INDICATED Clue Cells (Wet Prep) NONE SEEN Vaginal Trichomonas (Wet Prep) NONE SEEN Vaginal Yeast (Wet Prep) NONE SEEN Human Chorionic Gonadotropin, Quant 38067 MIU/ML Chlamydia trachomatis DNA (PCR) NOT DETECTED Neisseria gonorrhoeae DNA (PCR) NOT DETECTED MDM Supervised Visit with ANDREW: Yes Narrative Course I, Dr. Brandt, have reviewed the advance practice practitioner's documentation and am in agreement, met with the patient face to face, made the diagnosis, and the medical decision making was done by me. *My assessment and Findings: Patient seen and examined by me with Biju Patterson PA-C, ultrasound documented as below. Patient is benign abdomen. She stable for discharge and follow-up with her FOREMAN OR SUPERVISOR AND OPERATOR. We did discuss the patient's hCG had somewhat declined however the patient has a reassuring ultrasound. This is unknown significance. Procedures Procedure Narrative BS US: BS US OB performed. Transabdominal views show single IUP with FHT to 160. No obvious abnormalities. Trace free pelvic fluid. 10w6d by CRL. +FM. Scripts Metoclopramide (Reglan) 5 Mg Tab 5 MG PO TID for Nausea, #15 TAB 0 Refills Prov: Rakesh Brandt MD 03/05/17 Disposition: 01 DISCHARGE HOME Condition: Stable Rakesh Brandt MD Mar 05, 2017 17:18
[2017-03-05 20:50] LABS: CHLAMYDIA PCR NOT DETECTED (NOT DETECT); NEISSERIA PCR NOT DETECTED (NOT DETECT)
== END 2017-03-05 19:31 | disposition home or self-care (01) ==
LOC: NEPC 13:09
DX: O26.891 Other specified pregnancy related conditions, first trimester (principal); R10.2 Pelvic and perineal pain; O21.9 Vomiting of pregnancy, unspecified; Z3A.10 10 weeks gestation of pregnancy
CPT/HCPCS: 81001; 84702; 87210; 87491; 87591; 99283